=== PATIENT | female | born 1965 | race Caucasian/White ===

== ENCOUNTER 2021-04-22 16:21 | Emergency (ER) | payer OTHER ==
[2021-04-22 16:29] VITALS: BP 163/51; PULSE 71; TEMP 98.2; BMI 30.2
[2021-04-22] MEDS ORDERED: ACETAMINOPHEN 325 MG TABLET (FP) PO ONE (17:31)
[2021-04-22] MEDS ORDERED: ACETAMINOPHEN 325 MG TABLET (FP) ONE (18:56)
[2021-04-22] MEDS ORDERED: AMOX TR/POT CLAV 875MG/125MG TABLETS (FP) PO ONE (20:49)
[2021-04-22] MEDS ORDERED: AMOX TR/POT CLAV 500MG/125MG TABLETS (FP) ONE (21:06)
== END 2021-04-22 21:39 | disposition home or self-care (01) ==
LOC: JERFT 16:21 → SUPCPDRO 16:21 → JERFT 21:39
DX: S02.85XA Fracture of orbit, unspecified, initial encounter for closed fracture (principal)
CPT/HCPCS: 70486-TC; 99284-25

== ENCOUNTER 2023-04-05 18:49 | Emergency (ER) | payer OTHER ==
[2023-04-05 18:59] VITALS: BP 149/61; PULSE 80; RESP 18; TEMP 98.5; BMI 35.6
[2023-04-05] MEDS ORDERED: ERYTHROMYCIN 0.5% OPHTHALMIC OINTMENT 3.5 GM TUBE ONE (19:31)
[2023-04-05] MEDS ORDERED: FLUORESCEIN NA 1 EA STRIP ONE (19:31)
[2023-04-05] MEDS ORDERED: FLUORESCEIN NA 1 EA STRIP OS ONE (19:41)
[2023-04-05] MEDS ORDERED: KETOROLAC TROMETHAMINE 30 MG/1 ML VIAL IM ONE (19:41)
[2023-04-05] MEDS ORDERED: KETOROLAC TROMETHAMINE 30 MG/1 ML VIAL ONE (19:43)
[2023-04-06] MEDS ORDERED: ERYTHROMYCIN 0.5% OPHTHALMIC OINTMENT 3.5 GM TUBE OS SCH (10:00)
== END 2023-04-05 20:03 | disposition home or self-care (01) ==
LOC: JERFT 18:49
PROC: 3E0233Z Introduction of Anti-inflammatory into Muscle, Percutaneous Approach (ICD-10-PCS; principal; 2023-04-05)
DX: H57.12 Ocular pain, left eye (principal); H53.71 Glare sensitivity; H53.8 Other visual disturbances; S05.02XA Injury of conjunctiva and corneal abrasion without foreign body, left eye, initial encounter; X58.XXXA Exposure to other specified factors, initial encounter
CPT/HCPCS: 99284-25